=== PATIENT | female | born 1955 | race Caucasian/White ===

== ENCOUNTER 2021-06-23 15:19 | Emergency (ER) | payer OTHER, MEDICARE, MEDICAID ==
[2021-06-23] MEDS ORDERED: Lidocaine 1% PF 5 ML VIAL ONE ×2 (15:34→15:36)
[2021-06-23] MEDS ORDERED: Boostrix 0.5 ML (Tdap) VIAL ONE (15:35)
[2021-06-23] MEDS ORDERED: Doxycycline 100 MG CAP ONE (15:35)
== END 2021-06-23 16:28 | disposition home or self-care (01) ==
LOC: BURERS 15:19
DX: S11.95XA Open bite of unspecified part of neck, initial encounter (principal); S01.85XA Open bite of other part of head, initial encounter; S11.91XA Laceration without foreign body of unspecified part of neck, initial encounter; R00.0 Tachycardia, unspecified; Z71.6 Tobacco abuse counseling; F17.210 Nicotine dependence, cigarettes, uncomplicated; Z23 Encounter for immunization; W54.0XXA Bitten by dog, initial encounter
CPT/HCPCS: 90471; 90715; 99406

== ENCOUNTER 2021-06-30 14:32 | Emergency (ER) | payer MEDICARE, MEDICAID | END 2021-06-30 15:00 | disposition home or self-care (01) | LOC: BURERS 14:32 | DX: S11.95XD Open bite of unspecified part of neck, subsequent encounter (principal); F17.210 Nicotine dependence, cigarettes, uncomplicated | CPT/HCPCS: 99281 ==